=== PATIENT | male | born 1960 | race Caucasian/White ===

== ENCOUNTER 2017-03-09 19:03 | Emergency (ER) | payer SELFPAY ==
--- NOTE | 2017-03-09 19:19 | EDM.PDOC ---
ED HPI GENERAL MEDICAL PROBLEM - General Chief Complaint: Neuro Symptoms/Deficits Stated Complaint: UNRESPONSIVE Time Seen by Provider: 03/09/17 19:05 Source of Information: Reports: Patient, EMS, Old Records History Limitations: Reports: Altered Mental Status - History of Present Illness INITIAL COMMENTS - FREE TEXT/NARRATIVE: 57 yo male was released yesterday from a local long term after an admission for driving intoxicated. He was found a little while ago unresponsive and "foaming at the mouth" outside of the [facility]. He was reported to look post-ictal. EMS transported. They said his glc was normal and he was initially combative, but calmed after Versed 2 mg IM. Claudy is still somewhat confused on arrival to the ER and denies a hx of heavy alcohol use or seizures. He lives alone and is "disabled". Says he sees Dr. Walters. Onset: Today Onset Date: 03/09/17 Onset Time: 18:00 Duration: Minutes:, Improving Location: Reports: Generalized Quality: Reports: Other (no reported pain.) Severity: Moderate Improves with: Reports: Other (? time) Worsens with: Reports: Other (unknown) Context: Reports: Other (? heavy alcohol use history) Treatments ON [employer]: Reports: Other (see below) (Versed IM 2 mg per EMS) - Related Data Allergies Allergy/AdvReac Type Severity Reaction Status Date / Time No Known Allergies Allergy Verified 03/09/17 19:18 Home Meds: Home Meds Hydrocodone/Acetaminophen [[place] 5-325] 1 - 2 tab PO Q4H PRN #14 tablet [Rx] Ondansetron [Zofran ODT] 4 mg PO Q6H PRN #10 tab.dis 02/19/16 [Rx] Potassium Chloride 20 meq PO TID #20 cap.er 03/09/17 [Rx] Past Medical History HEENT History: Reports: Hard of Hearing, Impaired Vision Genitourinary History: Reports: Other (See Below) Other Genitourinary History: Bright's disease Musculoskeletal History: Reports: Back Pain, Chronic - Past Surgical History HEENT Surgical History: Reports: Other (See Below) Social & Family History - Family History Family Medical History: Noncontributory - Tobacco Use Smoking Status *Q: Current Every Day Smoker Years of Tobacco use: 35 Packs/Tins Daily: 1.5 Used Tobacco, but Quit: No Second Hand Smoke Exposure: No - Alcohol Use Days Per Week of Alcohol Use: 7 Number of Drinks Per Day: 2 Total Drinks Per Week: 14 - Recreational Drug Use Recreational Drug Use: No Recreational Drug Type: Reports: Marijuana/Hashish - Living Situation & Occupation Living situation: Reports: Occupation: Employed ED ROS GENERAL - Review of Systems Review Of Systems: See Below Constitutional: Reports: No Symptoms HEENT: Reports: Hearing Loss (L ear, not new) Respiratory: Reports: No Symptoms Cardiovascular: Reports: No Symptoms Endocrine: Reports: No Symptoms GI/Abdominal: Reports: No Symptoms : Reports: No Symptoms Musculoskeletal: Reports: No Symptoms Skin: Reports: No Symptoms Neurological: Reports: Confusion (getting better.) Psychiatric: Reports: Agitation (Better since Versed today.) - Physical Exam Exam: See Below Exam Limited By: Altered Mental Status (mildly confused.) General Appearance: Alert, WD/WN, No Apparent Distress Eye Exam: Bilateral Eye: EOMI, Normal Inspection, PERRL Ears: Normal External Exam, Normal Canal Nose: Normal Inspection, Normal Mucosa, No Blood Throat/Mouth: Normal Inspection, Normal Lips, Normal Oropharynx, Normal Voice, No Airway Compromise Head Exam: Atraumatic, Normocephalic Neck: Normal Inspection Respiratory/Chest: No Respiratory Distress, Lungs Clear, Normal Breath Sounds Cardiovascular: No Edema, No JVD, No Murmur, No Rub, Tachycardia GI/Abdominal: Soft, Non-Tender, No Distention (Male) Exam: Normal Inspection Neuro Exam (Abbreviated): Alert, CN II-XII Intact, No Motor/Sensory Deficits, Confused, Disoriented Back Exam: Normal Inspection. No: CVA Tenderness (R), CVA Tenderness (L) Extremities: Normal Inspection, Normal Range of Motion, Non-Tender, No Pedal Edema Psychiatric: Normal Affect, Normal Mood Skin Exam: Warm, Dry, Intact, Normal Color, No Rash EKG INTERPRETATION EKG Date: 03/09/17 Time: 19:30 Rhythm: NSR Rate (Beats/Min): 100 [place]: Normal P-Wave: Present QRS: Normal ST-T: Normal QT: Normal Comparison: No Change EKG Interpretation Comments: rate decreased by 6 per minute. Otherwise no change. Course - Vital Signs Text/Narrative:: saline lock, NS + 20 meq KCL/l IV @ 500 ml/h, KCL 40 meq po, thiamine 100 mg po , Magnesium oxide [address] scan-negative Last Recorded V/S: Last Vital Signs Temp 35.9 C 03/09/17 19:03 Pulse 118 H 03/09/17 19:03 Resp 21 H 03/09/17 19:03 BP 158/114 H 03/09/17 19:03 Pulse Ox 98 03/09/17 19:03 - Orders/Labs/Meds Orders: Active Orders 24 hr Category Date Time Status Cardiac Monitoring [RC] .As Directed Care 03/09/17 19:13 Active Head wo Cont [CT] Stat Exams 03/09/17 19:25 Taken NS + KCl 20mEq/L [Normal Saline with 20 mEq KCl] 1,000 Med 03/09/17 20:00 Active ml IV ASDIRECTED Sodium Chloride 0.9% [Saline Flush] Med 03/09/17 19:24 Active 10 ml FLUSH ASDIRECTED PRN Saline Lock Insert [OM.PC] Routine Oth 03/09/17 19:24 Ordered EKG 12 Lead [EK] Routine Ther 03/09/17 19:13 Ordered Medication Orders Potassium Chloride/Sodium Chloride (Normal Saline With 20 Meq Kcl) 1,000 mls @ 500 mls/hr IV ASDIRECTED SIMON Last Admin: 03/09/17 20:23 Dose: 500 mls/hr Sodium Chloride (Saline Flush) 10 ml FLUSH ASDIRECTED PRN PRN Reason: Keep Vein Open Last Admin: 03/09/17 19:45 Dose: 10 ml Labs: Laboratory Tests 03/09/17 03/09/17 03/09/17 Range/Units 18:50 18:50 19:20 WBC 6.7 (4.5-12.0) X10-3/uL RBC 3.76 L (4.30-5.75) x10(6)uL Hgb 13.2 (11.5-15.5) g/dL Hct 39.0 (30.0-51.3) % MCV 103.7 H (80-96) fL MCH 35.1 H (27.7-33.6) pg MCHC 33.9 (32.2-35.4) g/dL RDW 15.2 (11.5-15.5) % Plt Count 83 L (125-369) X10(3)uL Sodium (135-145) mmol/L Potassium (3.5-5.3) mmol/L Chloride (100-110) mmol/L Carbon Dioxide (23-29) mmol/L BUN (5-20) mg/dL Creatinine (0.6-1.3) mg/dL Est Cr Clr Drug Dosing Estimated GFR (MDRD) (>60) BUN/Creatinine Ratio (9-20) Glucose (80-116) mg/dL Calcium (8.6-10.2) mg/dL Magnesium (1.8-2.5) mg/dL Total Bilirubin (0.1-1.3) mg/dL AST (5-27) IU/L ALT (14-26) IU/L Alkaline Phosphatase (56-112) IU/L Troponin I (0.02-0.06) NG/ML Total Protein (6.0-8.0) g/dL Albumin (3.5-5.2) g/dL Globulin g/dL Albumin/Globulin Ratio Urine Color [place] (YELLOW) Urine Appearance Clear (CLEAR) Urine pH 7.0 H (5.0-6.5) Ur Specific [place] 1.010 (1.010-1.025) Urine Protein 30 H (NEGATIVE) mg/dL Urine Glucose (UA) Normal (NEGATIVE) mg/dL Urine Ketones 15 H (NEGATIVE) mg/dL Urine Occult Blood Trace (NEGATIVE) Urine Nitrite Negative (NEGATIVE) Urine Bilirubin Small H (NEGATIVE) Urine Urobilinogen >=12 H (NEGATIVE) mg/dL Ur Leukocyte Esterase Negative (NEGATIVE) Urine RBC 5-10 (0) Urine WBC 0-5 (0) Ur Squamous Epith Cells Moderate H (NS,R,O) Urine Bacteria Moderate H (NS) Hyaline Casts Many H (NS) Urine Opiates Screen Negative (NEGATIVE) Ur Oxycodone Screen Negative (NEGATIVE) Ur Propoxyphene Screen Negative (NEGATIVE) Ur Barbituates Screen Negative (NEGATIVE) Ur Tricyclics Screen Negative (NEGATIVE) Ur Phencyclidine Scrn Negative (NEGATIVE) Ur Amphetamine Screen Negative (NEGATIVE) Urine MDMA Screen Negative (NEGATIVE) U Benzodiazepines Scrn Negative (NEGATIVE) U Cocaine Metab Screen Negative (NEGATIVE) U Marijuana (THC) Screen Positive H (NEGATIVE) Ethyl Alcohol (<0.01) % 08/09/2403/09/17 03/09/17 Range/Units 19:20 19:20 19:20 WBC (4.5-12.0) X10-3/uL RBC (4.30-5.75) x10(6)uL Hgb (11.5-15.5) g/dL Hct (30.0-51.3) % MCV (80-96) fL MCH (27.7-33.6) pg MCHC (32.2-35.4) g/dL RDW (11.5-15.5) % Plt Count (125-369) X10(3)uL Sodium 128 L (135-145) mmol/L Potassium 2.9 L (3.5-5.3) mmol/L Chloride 90 L (100-110) mmol/L Carbon Dioxide 19 L (23-29) mmol/L BUN 11 (5-20) mg/dL Creatinine 0.7 (0.6-1.3) mg/dL Est Cr Clr Drug Dosing TNP Estimated GFR (MDRD) > 60 (>60) BUN/Creatinine Ratio 15.7 (9-20) Glucose 138 H (80-116) mg/dL Calcium 9.2 (8.6-10.2) mg/dL Magnesium (1.8-2.5) mg/dL Total Bilirubin 2.3 H (0.1-1.3) mg/dL AST 138 H D (5-27) IU/L ALT 35 H D (14-26) IU/L Alkaline Phosphatase 155 H (56-112) IU/L Troponin I < 0.01 L (0.02-0.06) NG/ML Total Protein 9.3 H (6.0-8.0) g/dL Albumin 4.1 (3.5-5.2) g/dL Globulin 5.2 g/dL Albumin/Globulin Ratio 0.8 Urine Color (YELLOW) Urine Appearance (CLEAR) Urine pH (5.0-6.5) Ur Specific [place] (1.010-1.025) Urine Protein (NEGATIVE) mg/dL Urine Glucose (UA) (NEGATIVE) mg/dL Urine Ketones (NEGATIVE) mg/dL Urine Occult Blood (NEGATIVE) Urine Nitrite (NEGATIVE) Urine Bilirubin (NEGATIVE) Urine Urobilinogen (NEGATIVE) mg/dL Ur Leukocyte Esterase (NEGATIVE) Urine RBC (0) Urine WBC (0) Ur Squamous Epith Cells (NS,R,O) Urine Bacteria (NS) Hyaline Casts (NS) Urine Opiates Screen (NEGATIVE) Ur Oxycodone Screen (NEGATIVE) Ur Propoxyphene Screen (NEGATIVE) Ur Barbituates Screen (NEGATIVE) Ur Tricyclics Screen (NEGATIVE) Ur Phencyclidine Scrn (NEGATIVE) Ur Amphetamine Screen (NEGATIVE) Urine MDMA Screen (NEGATIVE) U Benzodiazepines Scrn (NEGATIVE) U Cocaine Metab Screen (NEGATIVE) U Marijuana (THC) Screen (NEGATIVE) Ethyl Alcohol < 0.01 (<0.01) % 03/09/17 Range/Units 19:20 WBC (4.5-12.0) X10-3/uL RBC (4.30-5.75) x10(6)uL Hgb (11.5-15.5) g/dL Hct (30.0-51.3) % MCV (80-96) fL MCH (27.7-33.6) pg MCHC (32.2-35.4) g/dL RDW (11.5-15.5) % Plt Count (125-369) X10(3)uL Sodium (135-145) mmol/L Potassium (3.5-5.3) mmol/L Chloride (100-110) mmol/L Carbon Dioxide (23-29) mmol/L BUN (5-20) mg/dL Creatinine (0.6-1.3) mg/dL Est Cr Clr Drug Dosing Estimated GFR (MDRD) (>60) BUN/Creatinine Ratio (9-20) Glucose (80-116) mg/dL Calcium (8.6-10.2) mg/dL Magnesium 1.4 L (1.8-2.5) mg/dL Total Bilirubin (0.1-1.3) mg/dL AST (5-27) IU/L ALT (14-26) IU/L Alkaline Phosphatase (56-112) IU/L Troponin I (0.02-0.06) NG/ML Total Protein (6.0-8.0) g/dL Albumin (3.5-5.2) g/dL Globulin g/dL Albumin/Globulin Ratio Urine Color (YELLOW) Urine Appearance (CLEAR) Urine pH (5.0-6.5) Ur Specific [place] (1.010-1.025) Urine Protein (NEGATIVE) mg/dL Urine Glucose (UA) (NEGATIVE) mg/dL Urine Ketones (NEGATIVE) mg/dL Urine Occult Blood (NEGATIVE) Urine Nitrite (NEGATIVE) Urine Bilirubin (NEGATIVE) Urine Urobilinogen (NEGATIVE) mg/dL Ur Leukocyte Esterase (NEGATIVE) Urine RBC (0) Urine WBC (0) Ur Squamous Epith Cells (NS,R,O) Urine Bacteria (NS) Hyaline Casts (NS) Urine Opiates Screen (NEGATIVE) Ur Oxycodone Screen (NEGATIVE) Ur Propoxyphene Screen (NEGATIVE) Ur Barbituates Screen (NEGATIVE) Ur Tricyclics Screen (NEGATIVE) Ur Phencyclidine Scrn (NEGATIVE) Ur Amphetamine Screen (NEGATIVE) Urine MDMA Screen (NEGATIVE) U Benzodiazepines Scrn (NEGATIVE) U Cocaine Metab Screen (NEGATIVE) U Marijuana (THC) Screen (NEGATIVE) Ethyl Alcohol (<0.01) % Meds: Medications Generic Name Dose Route Start Last Admin Trade Name Freq PRN Reason Stop Dose Admin Potassium Chloride/Sodium Chloride 1,000 mls @ 500 mls/hr 03/09/17 20:00 09/24 20:23 Normal Saline With 20 Meq Kcl IV 500 mls/hr ASDIRECTED SIMON Administration Sodium Chloride 10 ml 03/09/17 19:24 03/09/17 19:45 Saline Flush FLUSH 10 ml ASDIRECTED PRN Administration Keep Vein Open Discontinued Medications Generic Name Dose Route Start Last Admin Trade Name Freq PRN Reason Stop Dose Admin Magnesium Oxide 800 mg 03/09/17 20:33 03/09/17 21:00 Magnesium Oxide PO 03/09/17 20:34 800 mg ONETIME ONE Administration Potassium Chloride 40 meq 03/09/17 19:54 03/09/17 20:26 Klor-Con 10 PO 03/09/17 19:55 40 meq ONETIME ONE Administration Thiamine HCl 100 mg 03/09/17 19:54 03/09/17 20:26 Vitamin B-1 PO 03/09/17 19:55 100 mg ONETIME ONE Administration Departure - Departure Time of Disposition: 22:15 Disposition: Home, Self-Care 01 Condition: Fair Clinical Impression: Hypokalemia, Hypomagnesemia, Thrombocytopenia, Hyponatremia, Marijuana use Alcoholic hepatitis Qualifiers: Ascites presence: without ascites Qualified Code(s): K70.10 - Alcoholic hepatitis without ascites - Discharge Information - My Orders Last 24 Hours: My Active Orders 03/09/17 19:13 Cardiac Monitoring [RC] .As Directed EKG 12 Lead [EK] Routine 03/09/17 19:24 Sodium Chloride 0.9% [Saline Flush] 10 ml FLUSH ASDIRECTED PRN Saline Lock Insert [OM.PC] Routine 03/09/17 19:25 Head wo Cont [CT] Stat 03/09/17 20:00 NS + KCl 20mEq/L [Normal Saline with 20 mEq KCl] 1,000 ml IV ASDIRECTED - Assessment/Plan Last 24 Hours: My Active Orders 03/09/17 19:13 Cardiac Monitoring [RC] .As Directed EKG 12 Lead [EK] Routine 03/09/17 19:24 Sodium Chloride 0.9% [Saline Flush] 10 ml FLUSH ASDIRECTED PRN Saline Lock Insert [OM.PC] Routine 03/09/17 19:25 Head wo Cont [CT] Stat 03/09/17 20:00 NS + KCl 20mEq/L [Normal Saline with 20 mEq KCl] 1,000 ml IV ASDIRECTED
[2017-03-09] MEDS ORDERED: Sodium Chloride 0.9% 10 ML Syringe FLUSH PRN (19:24)
[2017-03-09] MEDS ORDERED: Potassium Chloride 10 MEQ Tab.ER PO ONE (19:54)
[2017-03-09] MEDS ORDERED: Thiamine 100 MG Tab PO ONE (19:54)
[2017-03-09] MEDS ORDERED: NS + KCl 20mEq/L 1,000 ML IV SCH (20:00)
[2017-03-09] MEDS ORDERED: Magnesium Oxide 400 MG Tab PO ONE (20:33)
[2017-03-09 22:51] VITALS: BP 153/103
== END 2017-03-09 22:25 | disposition home or self-care (01) ==
LOC: FB.ED 19:03
DX: E87.6 Hypokalemia (principal); E83.42 Hypomagnesemia; D69.6 Thrombocytopenia, unspecified; E87.1 Hypo-osmolality and hyponatremia; F12.90 Cannabis use, unspecified, uncomplicated; K70.10 Alcoholic hepatitis without ascites; R41.0 Disorientation, unspecified; F17.210 Nicotine dependence, cigarettes, uncomplicated
CPT/HCPCS: 36415; 70450; 80053; 80305; 81001; 83735; 84484; 85027; 93005; 96360; 96361; 99284; 99285; A9270; G0480; J3480; J7050